=== PATIENT | male | born 1960 | race Caucasian/White ===

== ENCOUNTER 2017-04-27 06:14 | Emergency (ER) | payer OTHER ==
[~2017-04-27] VITALS: Ht 177.8 cm; Wt 73.0 kg
[~2017-04-27 06:14] MED LIST: ADVA250A INH; CARV6.252 PO; CLON.1 PO; HYDR-2768 PO; OMEP20TA OR; PRED20 PO
[2017-04-27 06:20] VITALS: BP 157/82; PULSE 60; RESP 12; TEMP 97.7; O2SAT 97
[2017-04-27] MEDS ORDERED: ANUS25SU RECTAL (06:26)
--- NOTE | 2017-04-27 06:36 | PD ---
HPI Chief Complaint: hemorrhoidal pain Time Seen by Provider: 06:25 Travel History International Travel<30 days: No Contact w/Intl Traveler<30days: No Traveled to known affect area: No History of Present Illness HPI The patient is a 57-year-old male that had colonoscopy yesterday afternoon at 4: 00. He has hemorrhoids and has hemorrhoids are extremely painful. He states the doctors were going to write him a prescription for Anusol but he never got the prescription. He comes in for the prescription of Anusol. PFSH Past Medical History Asthma: Yes Anxiety: No Depression: No Heart Rhythm Problems: No Cancer: No Cardiovascular Problems: No High Cholesterol: No Chest Pain: Yes (CHEST DISCOMFORT ) Cerebrovascular Accident: No Endocrine: No GERD: Yes Genitourinary: No Hypertension: Yes Immune Disorder: No Musculoskeletal: No Neurologic: No Psychiatric: No Reproductive: No Migraines: No Seizures: No Social History Alcohol Use: Yes (WEEKENDS) Tobacco Use: No Substance Use: No (PT DENIES ) Allergies-Medications (Allergen,Severity, Reaction): Coded Allergies: No Known Allergies (Unverified , 04/03/12) Reported Meds & Prescriptions Reported Meds & Active Scripts Active Anusol-Hc Supp (Hydrocortisone Supp) 25 Mg Supp 25 Mg RECTAL BID Deltasone (Prednisone) 20 Mg Tab 60 Mg PO DAILY FOR 5 DAYS Reported Carvedilol 6.25 mg (Carvedilol) 6.25 Mg Tab 6.25 Mg PO BID Hctz (Hydrochlorothiazide) 25 Mg Tab 25 Mg PO DAILY Catapres 0.1 mg (Clonidine HCl) 0.1 Mg Tab 0.1 Mg PO TID Omeprazole 20 mg (Omeprazole) 20 Mg Tab 20 Mg OR DAILY Advair Diskus 250/50 (Salmeterol Xinafoate/Fluticasone) 250 Mcg/50 Mcg Inhp 1 Puff INH BID Review of Systems Except as stated in HPI: all other systems reviewed are Neg Physical Exam Narrative GENERAL: Well-nourished, well-developed patient in moderate apparent distress with his hemorrhoidal pain.. SKIN: Focused skin assessment warm/dry. HEAD: Normocephalic. EYES: No scleral icterus. No injection or drainage. NECK: Supple, trachea midline. No JVD or lymphadenopathy. CARDIOVASCULAR: Regular rate and rhythm without murmurs, gallops, or rubs. RESPIRATORY: Breath sounds equal bilaterally. No accessory muscle use. GASTROINTESTINAL: Abdomen soft, non-tender, nondistended. MUSCULOSKELETAL: No cyanosis, or edema. BACK: Nontender without obvious deformity. No CVA tenderness. RECTAL EXAM: There is a single, nonthrombosed, hemorrhoid that is not bleeding. I was able to push this back, with the patient's consent and it did stay partially in. Data Data Last Documented VS Vital Signs Date Time Temp Pulse Resp B/P (MAP) Pulse Ox O2 Delivery O2 Flow Rate FiO2 04/27/17 06:20 97.7 60 12 157/82 (107) 97 MDM Medical Decision Making Medical Screen Exam Complete: Yes Emergency Medical Condition: Yes Medical Record Reviewed: Yes Differential Diagnosis Rectal fissure, thrombosed hemorrhoid, nonthrombosed hemorrhoid, bleeding hemorrhoid, perirectal abscess-unlikely Narrative Course The patient has a nonthrombosed, nonbleeding hemorrhoid. It is painful and he will get the prescription for Anusol HC suppositories as his doctors have intended. Additional Instructions: Sometimes sitting in a cool ice bath helps the hemorrhoidal pain. The suppositories or use twice daily per rectum. Med/Other Pt SpecificInfo: Prescription(s) given Scripts Hydrocortisone Supp (Anusol-Hc Supp) 25 Mg Supp 25 MG RECTAL BID, #24 SUPP Prov: Matt Ponce MD 04/27/17 Disposition: 01 DISCHARGE HOME Condition: Stable Matt Ponce MD Apr 27, 2017 06:36
[2017-04-27] MEDS ORDERED: CLON0.3T PO (06:38)
[2017-04-27] MEDS ORDERED: AMLO10TA2 PO (06:39)
[2017-04-27] MEDS ORDERED: OMEP20TA PO (06:39)
== END 2017-04-27 06:51 | disposition home or self-care (01) ==
LOC: PHED 06:14
DX: K64.8 Other hemorrhoids (principal); I10 Essential (primary) hypertension; Z98.890 Other specified postprocedural states; Z87.09 Personal history of other diseases of the respiratory system; Z87.19 Personal history of other diseases of the digestive system
CPT/HCPCS: 99284